=== PATIENT | male | born 1975 | race Caucasian/White ===

== ENCOUNTER 2017-05-12 21:20 | Emergency (ER) | payer BC ==
[~2017-05-12] VITALS: Ht 188 cm; Wt 165.0 kg
[~2017-05-12 21:20] MED LIST: Z.0.NO CURRENT MEDS
[2017-05-12 21:22] VITALS: BP 183/109; PULSE 93; RESP 18; TEMP 97.9; O2SAT 98
--- NOTE | 2017-05-12 22:26 | PD ---
HPI Chief Complaint: Allergic/Adverse Reaction Time Seen by Provider: 21:59 Travel History International Travel<30 days: No Contact w/Intl Traveler<30days: No Traveled to known affect area: No History of Present Illness HPI 42yo M with no significant PMH presents to the ED with c/o redness, itching and rash on bilateral hands for 2 days. Said 4 days ago, he tripped and fell and has a cut on his left leg. He decides to take his 's erythromycin Tuesday night and then 2 days later started having rash in bilateral hands that are itching and burning at the same time. Pt said he had chills 2 days ago that has improved. Also with some throat pain. Denies any tongue or lip swelling, chest pain, sob, n/v, abdominal pain, focal weakness or numbness. Tetanus not up to date. PFSH Past Medical History Medical History: Denies Significant Hx Past Surgical History Surgical History: No Previous Surgery Tonsillectomy: Yes Social History Alcohol Use: No Tobacco Use: Yes (/ PPD) Substance Use: No Allergies-Medications (Allergen,Severity, Reaction): Coded Allergies: No Known Allergies (Verified Allergy, Mild, 07/05/07) ciprofloxacin (Verified Allergy, Unknown, Headache, 05/12/17) erythromycin base (Verified Allergy, Unknown, Burning, 05/12/17) blistering Reported Meds & Prescriptions Reported Meds & Active Scripts Active Clindamycin (Clindamycin HCl) 300 Mg Cap 300 Mg PO Q6H 7 Days Deltasone (Prednisone) 20 Mg Tab 20 Mg PO BID 5 Days Diphenhydramine (Diphenhydramine HCl) 25 Mg Cap 25 Mg PO Q6H 5 Days Reported No Current Meds (Miscellaneous Medication) [facility] [place] Review of Systems Except as stated in HPI: all other systems reviewed are Neg Physical Exam Narrative GENERAL: 42yo M in mild distress. SKIN: Maculopapular rash in edwards aspects of bilateral hands, small amount on face as well. No mucosal involvement. HEAD: Atraumatic. Normocephalic. EYES: Pupils equal and round. No scleral icterus. No injection or drainage. ENT: Throat: Uvula erythematous. Uvula midline. No tongue swelling. NECK: Trachea midline. No JVD. CARDIOVASCULAR: Regular rate and rhythm. No murmur appreciated. RESPIRATORY: No accessory muscle use. Clear to auscultation. Breath sounds equal bilaterally. GASTROINTESTINAL: Abdomen soft, non-tender, nondistended. MUSCULOSKELETAL: LLE: +Erythema sounding laceration that is healing. DP 2+. Sensation intact. NEUROLOGICAL: Awake and alert. No obvious cranial nerve deficits. Motor grossly within normal limits. Normal speech. PSYCHIATRIC: Appropriate mood and affect; insight and judgment normal. Data Data Last Documented VS Vital Signs Date Time Temp Pulse Resp B/P (MAP) Pulse Ox O2 Delivery O2 Flow Rate FiO2 05/12/17 21:22 97.9 93 18 183/109 (133) 98 Room Air Orders Orders Diphenhydramine Inj (Benadryl Inj) (05/12/17 22:30) Complete Blood Count With Diff (05/12/17 22:19) Basic Metabolic Panel (Bmp) (05/12/17 22:19) Group A Rapid Strep Screen (05/12/17 22:19) Tibia/Fibula (Ap/Lat) (05/12/17 ) Clindamycin 600 Mg Premix (Cleocin 600 M (05/12/17 22:30) Ketorolac Inj (Toradol Inj) (05/12/17 22:30) Tetanus/Diphtheria Tox Adult (Tetanus/Di (05/12/17 22:30) Lactic Acid Sepsis Protocol (05/12/17 22:20) Strep Culture (Group A) (05/12/17 22:35) Methylprednisolone So Succ Inj (Solumedr (05/13/17 00:30) Acetamin-Hydrocod 325-5 Mg ([place] 5-325 (05/13/17 00:30) Ed Discharge Order (05/13/17 00:56) Labs Laboratory Tests Test 05/12/17 22:35 White Blood Count 8.0 TH/MM3 Red Blood Count 4.79 MIL/MM3 Hemoglobin 14.4 GM/DL Hematocrit 42.5 % Mean Corpuscular Volume 88.8 FL Mean Corpuscular Hemoglobin 30.1 PG Mean Corpuscular Hemoglobin Concent 33.9 % Red Cell Distribution Width 13.7 % Platelet Count 266 TH/MM3 Mean Platelet Volume 7.8 FL Neutrophils (%) (Auto) 77.6 % Lymphocytes (%) (Auto) 9.8 % Monocytes (%) (Auto) 9.9 % Eosinophils (%) (Auto) 2.2 % Basophils (%) (Auto) 0.5 % Neutrophils # (Auto) 6.2 TH/MM3 Lymphocytes # (Auto) 0.8 TH/MM3 Monocytes # (Auto) 0.8 TH/MM3 Eosinophils # (Auto) 0.2 TH/MM3 Basophils # (Auto) 0.0 TH/MM3 CBC Comment DIFF FINAL Differential Comment Blood Urea Nitrogen 13 MG/DL Creatinine 0.95 MG/DL Random Glucose 151 MG/DL Calcium Level 8.6 MG/DL Sodium Level 138 MEQ/L Potassium Level 3.9 MEQ/L Chloride Level 104 MEQ/L Carbon Dioxide Level 26.0 MEQ/L Anion Gap 8 MEQ/L Estimat Glomerular Filtration Rate 86 ML/MIN Lactic Acid Level 1.1 mmol/L MDM Medical Decision Making Medical Screen Exam Complete: Yes Emergency Medical Condition: Yes Differential Diagnosis Cellulitis vs. allergic reaction to erythromycin vs. drug reaction Narrative Course 42yo M with rash on bilateral hand that is burning and itchy. Labs reviewed, no leukocytosis. Lactic acid normal. Pt given methylprednisolone, lortab, toradol, diphenhydramine, toradol and tetanus. Xray left tib/fib showed no evidence of acute fracture. Negative group A strep. No airway compromise. No SOB or chest pain. Pt reevaluated at bedside with improvement of symptoms. Instructed pt to follow up with dermatology or PMD. Return precautions given. Diagnosis Primary Impression: Cellulitis Qualified Codes: L03.116 - Cellulitis of left lower limb Patient Instructions: General Instructions Departure Forms: Tests/Procedures Additional Instructions: Please follow up with [facility] in 2 days. Return to the ED if symptoms worsen. Med/Other Pt SpecificInfo: Prescription(s) given Scripts Hydrocodone-Acetaminophen (Hydrocodone-Acetaminophen) 5-325 mg Tab 1 TAB PO Q6H Y for PAIN, #7 TAB 0 Refills Prov: Gricel Hines DO 05/13/17 Clindamycin (Clindamycin) 300 Mg Cap 300 MG PO Q6H for Infection for 7 Days, #28 CAP 0 Refills Prov: Gricel Hines DO 05/13/17 Prednisone (Deltasone) 20 Mg Tab 20 MG PO BID for 5 Days, #10 TAB 0 Refills Prov: Gricel Hines DO 05/13/17 Diphenhydramine (Diphenhydramine) 25 Mg Cap 25 MG PO Q6H for Itching for 5 Days, #20 CAP 0 Refills Prov: Gricel Hines DO 05/13/17 Gricel Hines DO May 12, 2017 22:26
[2017-05-12] MEDS ORDERED: KETOROLAC TROMETHAMINE 30 MG/ML (IVP) VIAL IV PUSH ONE (22:30)
[2017-05-12] MEDS ORDERED: diphenhydrAMINE HCL 50 MG/ML VIAL IV PUSH ONE (22:30)
[2017-05-12] MEDS ORDERED: TETANUS/DIPHTHERIA TOXOID ADULT 0.5 ML VIAL IM ONE (22:30)
[2017-05-12] MEDS ORDERED: CLINDAMYCIN 600 MG PREMIX 50 ML IV ONE (22:30)
[2017-05-12 22:48] LABS: AUTOMATED NEUTROPHIL # 6.2 TH/MM3 (1.8-7.7); BASOPHIL % 0.5 % (0.0-2.0); EOSINOPHIL # 0.2 TH/MM3 (0-0.4); EOSINOPHIL % 2.2 % (0.0-4.0); HEMATOCRIT 42.5 % (39.0-51.0); HEMO FLAGS DIFF FINAL; LYMPH % 9.8 % (9.0-44.0); LYMPHOCYTE # 0.8 TH/MM3 (1.0-4.8); MEAN CELL VOLUME 88.8 FL (80.0-100.0); MEAN CORPUSCULAR HEMOGLOBIN 30.1 PG (27.0-34.0); MEAN CORPUSCULAR HGB CONC 33.9 % (32.0-36.0); MONO % 9.9 % (0.0-8.0); NEUT % 77.6 % (16.0-70.0); PLATELET COUNT 266 TH/MM3 (150-450); RED BLOOD COUNT 4.79 MIL/MM3 (4.50-5.90); RED CELL DISTRIBUTION WIDTH 13.7 % (11.6-17.2)
--- NOTE | 2017-05-12 22:54 | RADRPT ---
EXAM DATE/TIME: 05/12/2017 22:30 [place] COMPARISON: No previous studies available for comparison. INDICATIONS : Abrasion redness and rash left anterior tibia, fell MEDICAL HISTORY : None. SURGICAL HISTORY : None. ENCOUNTER: Initial ACUITY: 1 week PAIN SCORE: 2/10 LOCATION: Left Tibia FINDINGS: Two view examination of the left tibia demonstrates no evidence of fracture or dislocation. Bony min eralization is normal. The soft tissue structures are intact. Inferior and posterior calcaneal spurs are present. CONCLUSION: 1. There is no evidence of acute fracture. Kolton Rosales MD on May 12, 2017 at 22:52 Board Certified Radiologist. This report was verified electronically.
[2017-05-12 23:07] LABS: POTASSIUM 3.9 MEQ/L (3.5-5.1)
[2017-05-13] MEDS ORDERED: ACETAMINOPHEN/HYDROcodone 325 MG/5 MG TAB PO ONE (00:30)
[2017-05-13] MEDS ORDERED: methylPREDNISolone SOD SUCC 125 MG/2 ML VIAL IV PUSH ONE (00:30)
[2017-05-13] MEDS ORDERED: CLIN300C5 PO (00:56)
[2017-05-13] MEDS ORDERED: PRED-503 PO (00:56)
[2017-05-13] MEDS ORDERED: DIPH25CA PO (00:56)
[2017-05-13] MEDS ORDERED: HYDR-3516 PO (01:00)
== END 2017-05-13 01:49 | disposition home or self-care (01) ==
LOC: NEPD 21:20
DX: L03.116 Cellulitis of left lower limb (principal); F17.200 Nicotine dependence, unspecified, uncomplicated; Z79.899 Other long term (current) drug therapy; Z23 Encounter for immunization
CPT/HCPCS: 73590; 80048; 83605; 85025; 87081; 87880; 90471; 90714; 96365; 96366; 96375; 99284; J1200; J1885; J2930